=== PATIENT | female | born 1970 | race Caucasian/White ===

== ENCOUNTER 2022-04-01 15:58 | Outpatient (CLI) | payer OTHER, SELFPAY | END 2022-04-01 15:59 | disposition home or self-care (01) | LOC: MADRAD 15:58 | PROVIDERS: ATTEND Registered Nurse | DX: M25.511 Pain in right shoulder (principal); M54.50 Low back pain, unspecified; W19.XXXA Unspecified fall, initial encounter; M47.816 Spondylosis without myelopathy or radiculopathy, lumbar region | CPT/HCPCS: 72100 ==

== ENCOUNTER 2022-04-02 15:42 | Outpatient (CLI) | payer OTHER, SELFPAY | END 2022-04-02 15:43 | disposition home or self-care (01) | LOC: MADLAB 15:42 | PROVIDERS: ATTEND Registered Nurse | DX: W19.XXXA Unspecified fall, initial encounter (principal) | CPT/HCPCS: 72040 ==

== ENCOUNTER 2023-10-06 14:32 | Emergency (ER) | payer SELFPAY ==
[2023-10-06] MEDS ORDERED: Acetaminophen 500 MG TAB ONE ×2 (15:19→15:21)
[2023-10-06 15:24] LABS: Bilirubin Negative (Negative); Blood, Urine Trace (Negative); Glucose, Urine (Dipstick) >=1000 mg/dL (Negative); Ketone, Urine 40 mg/dL (Negative); Leukocyte Negative (Negative); Nitrite Negative (Negative); Protein, Urine (Dipstick) Negative (Neg-Trace); Urobilinogen 0.2 mg/dL (Less than 2)
[2023-10-06 15:28] LABS: Pregnancy Test - Urine (BHCG) Negative (Negative); Pregu Control Background? CLEAR/WHITE (CLR/WHITE); Pregu Control Bar Appear? YES (CONTROL BAR)
[2023-10-06 15:29] LABS: Clarity Hazy (Clear)
[2023-10-06 15:34] LABS: CAUTI Indications for Culture Alt mental st,lethar
[2023-10-06 15:36] LABS: Bacteria/HPF 1+ HPF (None Seen); RBC/HPF 0-3 HPF (0-3); WBC/HPF 0-3 HPF (0-3); Yeast-Budding Rare HPF (None Seen)
[2023-10-06 15:37] LABS: Urine Culture Reflex No No
[2023-10-06 15:42] LABS: Amphetamine Not Detected (NotDetected); Barbiturates Screen Not Detected (NotDetected); Benzodiazepine Screen Not Detected (NotDetected); Cocaine Metabolite Screen Not Detected (NotDetected); Methadone Not Detected (NotDetected); Methamphetamine Not Detected (NotDetected); Opiate Screen Not Detected (NotDetected); Oxycodone Screen Not Detected (NotDetected); Phencyclidine (PCP) Not Detected (NotDetected); THC/Cannabinoid Screen Not Detected (NotDetected); Tricyclic Screen Not Detected (NotDetected)
== END 2023-10-06 16:54 | disposition home or self-care (01) ==
LOC: MADERS 14:32
DX: S00.03XA Contusion of scalp, initial encounter (principal); M54.2 Cervicalgia; M54.50 Low back pain, unspecified; I10 Essential (primary) hypertension; E11.9 Type 2 diabetes mellitus without complications; W17.89XA Other fall from one level to another, initial encounter
CPT/HCPCS: 70450; 72100; 72125; 80306; 81001; 81025